=== PATIENT | male | born 1940 | race African-American/Black ===

== ENCOUNTER 2018-02-03 06:34 | Day surgery (SDC) | payer MEDICARE ==
[2018-01-31 09:47] VITALS: BMI 26.6
[2018-02-03] MEDS ORDERED: MIDAZOLAM HCL 2 MG/2 ML SINGLE DOSE VIAL ONE (07:44)
[2018-02-03] MEDS ORDERED: PROPOFOL 20 ML ONE ×2 (07:44)
[2018-02-03] MEDS ORDERED: LIDOCAINE HCL/PF 2% SDV 5ML VIAL ONE (07:44)
[2018-02-03] MEDS ORDERED: DESFLURANE GAS 240 ML BOTTLE IH ONE (08:09)
[2018-02-03] MEDS ORDERED: ACETAMINOPHEN 325 MG TABLET (FP) PO PRN (08:11)
[2018-02-03] MEDS ORDERED: ONDANSETRON 4 MG/2 ML VIAL IVPUSH PRN (08:11)
[2018-02-03] MEDS ORDERED: oxyCODONE HCL 5 MG TABLET PO PRN (08:11)
[2018-02-03] MEDS ORDERED: LACTATED RINGERS SOLUTION 1,000 ML IV SCH (08:15)
[2018-02-03 09:42] VITALS: TEMP 97.9
[2018-02-03] MEDS ORDERED: ACETAMINOPHEN 325 MG TABLET (FP) ONE (11:16)
--- NOTE | 2018-02-03 12:07 | OP ---
Operative Note - Note: Operative Date: 02/03/18 Pre-Operative Diagnosis: bph/urethral stricture Operation: cystoscopy/urethral dilation/laser urethrotomy Findings: high grade bulbourethral stricture Post-Operative Diagnosis: Same as Pre-op Surgeon: Gwyn Young Anesthesia: General Drains & Tubes with Location: 22 eritrean silastic catheter
[2018-02-03 14:03] VITALS: BP 128/69; PULSE 72
--- NOTE | 2018-04-03 16:40 | OP ---
DATE OF OPERATION: 02/03/2018 PREOPERATIVE DIAGNOSIS: Benign prostatic hypertrophy and urethral stricture. POSTOPERATIVE DIAGNOSIS: Benign prostatic hypertrophy with urethral stricture. PROCEDURE: Cystoscopy, urethral dilation, and laser urethrotomy. SURGEON: Belgica Presley MD ANESTHESIA: General. DESCRIPTION OF PROCEDURE: The patient was brought to the operating room and placed in the supine position on the operating table. Preoperative antibiotics and anesthesia are administered. The patient was then placed in the dorsal lithotomy position and prepped and draped in the usual sterile manner. Cystoscopy was attempted and the bulbous urethral stricture is noted. Attempts at dilation were unsuccessful. At this point, it was decided to perform a laser urethrotomy utilizing a Holmium laser. A Holmium laser was utilized under cystoscopic visualization. A 12 oclock incision was made at the area of the bulbous urethra. Care was taken not to return to the area of this empiric mechanism. The urethral sphincter was preserved. The 12 oclock position allowed for passage of the cystoscope into the bladder. The 3+ obstructive prostate with a large median lobe was noted. A 2+ was seen. No evidence of stones or neoplasm was noted within the bladder. At this point, the cystoscope was removed and a 22-Slovak Silastic catheter was placed to straight drainage. No complications were noted. DISPOSITION: The patient went to the recovery room. BELGICA PRESLEY M.D. /[id number]
== END 2018-02-03 13:00 | disposition home or self-care (01) ==
LOC: JASU-SURG 06:34
PROVIDERS: ATTEND Urology
PROC: 0T7D8ZZ Dilation of Urethra, Via Natural or Artificial Opening Endoscopic (ICD-10-PCS; principal; 2018-02-03 08:00)
DX: N40.1 Benign prostatic hyperplasia with lower urinary tract symptoms (principal); N35.8 Other urethral stricture; I10 Essential (primary) hypertension
CPT/HCPCS: 82962; 94760

== ENCOUNTER 2018-02-22 03:46 | Emergency (ER) | payer MEDICARE ==
--- NOTE | 2018-02-22 04:09 | PDOC ---
Attending Attestation - Resident Resident Name: Gege Castellon - ED Attending Attestation I have performed the following: I have examined & evaluated the patient, The case was reviewed & discussed with the resident, I agree w/resident's findings & plan - HPI HPI: 02/22/18 05:03 Pt came with urinary retention. BP elevated secondary to pain. After urine drained with a neil catheter, pt's BP is 127/73. - Medical Decision Making 02/22/18 05:04 Discussed with pt's doctor. Pt will go home with a neil catheter. <Lelo Call - Last Filed: 02/22/18 05:03> - HPI HPI: 02/22/18 05:32 The patient is a 77 year old male, with a significant past medical history of DM and BPH, who presents to the emergency department with, urinary retention. As per patient, he had a laser urethrotomy done on 02/[address] Young. He had a catheter placed and removed 02/18. Yesterday be notes urinary retention. He denies any recent fevers, chills, headache or dizziness. He denies any recent nausea, vomit, diarrhea or constipation. He denies any recent chest pain or shortness of breath. He denies any recent dysuria, frequency, urgency or hematuria. Allergies: Sulfamethoxazole Primary Care Physician: Dr. Barber Bassett - Physicial Exam PE: 02/22/18 05:33 GENERAL: Awake, alert, and fully oriented, in no acute distress HEAD: No signs of trauma EYES: PERRLA, EOMI, sclera anicteric, conjunctiva clear ENT: Auricles normal inspection, hearing grossly normal, nares patent, oropharynx clear without exudates. Moist mucosa NECK: Normal ROM, supple, no lymphadenopathy, JVD, or masses LUNGS: Breath sounds equal, clear to auscultation bilaterally. No wheezes, and no crackles HEART: Regular rate and rhythm, normal S1 and S2, no murmurs, rubs or gallops ABDOMEN: Soft, nontender, normoactive bowel sounds. No guarding, no rebound. No masses +EXTREMITIES: Minimal pitting edema to the bilateral lower extremities. Normal range of motion. No clubbing or cyanosis. No cords, erythema, or tenderness NEUROLOGICAL: Cranial nerves II through XII grossly intact. Normal speech, normal gait SKIN: Warm, Dry, normal turgor, no rashes or lesions noted. <Flora Gay - Last Filed: 02/22/18 05:33> Attestations - Attestations 02/22/18 05:33 Documentation prepared by Flora Gay, acting as medical economics consultant for Lelo Call MD. <Flora Gay - Last Filed: 02/22/18 05:33>
[2018-02-22 04:31] VITALS: BP 198/100; PULSE 86; TEMP 98.8; BMI 26.2
--- NOTE | 2018-02-22 04:32 | PDOC ---
History of Present Illness <Lelo Call - Last Filed: 02/22/18 05:17> - General History Source: Patient - History of Present Illness Initial Comments: 02/22/18 05:18 Pt is a 77yo m with PMH of BPH, DM presenting to ED with complaints of "I can't pee". Pt had a laser urethrotomy on 02/[address] Young. He had a urinary cather placed in since then. He was recently seen in the ED for "blockage" of the cather which was drained. Pt has been on antibiotics since the cather had been in place. Cather was removed this past Saturday. Pt states he has been unable to urinate since yesterday and has been having suprapubic abdominal pains. PMH: see hpi PSH: see hpi Allergies: bactrim meds: see med rec <Gege Castellon - Last Filed: 02/22/18 05:41> - General Chief Complaint: Urinary Problem Stated Complaint: PROBLEM URINATING/POST SURGERY Time Seen by Provider: 02/22/18 04:03 Past History <Lelo Call - Last Filed: 02/22/18 05:17> - Past Medical History Anemia: No Asthma: No Cancer: No Cardiac Disorders: No CVA: No COPD: No CHF: No Dementia: No Diabetes: Yes GI Disorders: No Disorders: No HTN: Yes Hypercholesterolemia: No Liver Disease: No Seizures: No Thyroid Disease: No - Surgical History Orthopedic Surgery: Yes (TIAN SHOULDER SX) - Suicide/Smoking/Psychosocial Hx Smoking History: Former smoker Have you smoked in the past 12 months: No If you are a former smoker, when did you quit?: many years ago Hx Alcohol Use: No Drug/Substance Use Hx: No Substance Use Type: None Hx Substance Use Treatment: No <Gege Castellon - Last Filed: 02/22/18 05:41> - Past Medical History Allergies/Adverse Reactions: Allergies Allergy/AdvReac Type Severity Reaction Status Date / Time sulfamethoxazole Allergy Verified 02/22/18 04:30 [From Bactrim] Home Medications: Ambulatory Orders Amlodipine Besylate 10 mg PO DAILY 01/31/18 Gabapentin 300 mg PO TID 01/31/18 Glipizide [Glipizide ER] 10 mg PO DAILY 01/31/18 Sitagliptin Phos/Metformin HCl [Janumet 50-1,000 mg Tablet] 1 each PO BID Tamsulosin HCl 0.4 mg PO DAILY 01/31/18 levoFLOXacin [Levaquin -] 500 mg PO DAILY #7 tablet 02/03/18 Oxybutynin Chloride [Ditropan Xl] 10 mg PO DAILY #3 tab.er.24 02/08/18 Nitrofurantoin Monohyd/M-Cryst [Macrobid -] 100 mg PO BID #14 capsule 02/12/18 Review of Systems - Review of Systems Constitutional: No: Chills, Fever, Loss of Appetite, Weakness HEENTM: No: Recent change in vision, Double Vision Respiratory: No: Cough, Shortness of Breath Cardiac (ROS): No: Chest Pain, Lightheadedness, Palpitations, Syncope ABD/GI: Yes: Other (suprapubic abdominal pain). No: Abdominal Distended, Blood Streaked Bowels, Constipated, Diarrhea, Nausea, Vomiting : Yes: Other (urinary retention). No: Burning, Dysuria, Incontinence Musculoskeletal: No: Back Pain, Joint Pain, Muscle Pain, Muscle Weakness, Neck Pain Neurological: No: Headache, Numbness, Tingling <Gege Castellon - Last Filed: 02/22/18 05:41> *Physical Exam - Vital Signs Last Vital Signs Temp Pulse Resp BP Pulse Ox 98.8 F 86 22 198/100 99 02/22/18 03:50 02/22/18 03:50 02/22/18 03:50 02/22/18 03:50 02/22/18 03:50 <Lelo Call - Last Filed: 02/22/18 05:17> - Physical Exam General Appearance: Yes: Nourished, Appropriately Dressed. No: Apparent Distress HEENT: positive: EOMI, SHIELA, Pharynx Normal. negative: Pharyngeal Erythema Neck: positive: Trachea midline. negative: Lymphadenopathy (R), Lymphadenopathy (L) Respiratory/Chest: positive: Lungs Clear, Normal Breath Sounds. negative: Crackles, Rales, Rhonchi, Stridor Cardiovascular: positive: Regular Rhythm, Regular Rate, S1, S2. negative: JVD, Murmur Vascular Pulses: Carotid (R): 2+, Carotid (L): 2+, Dorsalis-Pedis (R): 2+, Doralis-Pedis (L): 2+ Gastrointestinal/Abdominal: positive: Normal Bowel Sounds, Soft, Tenderness ( suprapubic tenderness). negative: Distended, Guarding, Rebound Male Genitalia: positive: normal genitalia, hematuria (red urine from catheter. ). negative: testicular tenderness, testicular mass Musculoskeletal: negative: CVA Tenderness Extremity: positive: Normal Capillary Refill Integumentary: positive: Normal Color, Dry Neurologic: positive: printing grey cloth tender II-XII NML intact, Fully Oriented, Alert, Normal Mood/ Affect, Normal Response, Motor Strength 5/5 <Gege Castellon - Last Filed: 02/22/18 05:41> ED Treatment Course - ADDITIONAL ORDERS Additional order review: Laboratory Results 02/22/18 04:38 Urine Color Red Urine Appearance Slcloudy Urine pH 6.0 Ur Specific [place] 1.011 Urine Protein 2+ H Urine Glucose (UA) 2+ H Urine Ketones Negative Urine Blood 3+ H Urine Nitrite Negative Urine Bilirubin Negative Urine Urobilinogen Negative Ur Leukocyte Esterase Trace <Lelo Call - Last Filed: 02/22/18 05:17> Medical Decision Making - Medical Decision Making 02/22/18 05:39 Pt is a 77yo m with PMH of BPH, DM presenting to ED with complaints of "I can't pee". Urinary cather placed. hematuria present. UA collected. Will wait for result. Pt reported feeling better with catheter in place. No more suprapubic pain. UA negative for infection. Called Dr. Young. Dr. Cunha answered. Ok with plan to DC pt with leg bag and have pt follow up in office next week. Pt hemodynamically stable and reported resolution of symptoms. Is ambulatory and has good f/u. Will d/c home with strict return precautions. <Gege Castellon - Last Filed: 02/22/18 05:41> *DC/Admit/Observation/Transfer <Lelo Call - Last Filed: 02/22/18 05:17> <Gege Castellon - Last Filed: 02/22/18 05:41> Diagnosis at time of Disposition: Urinary retention - Discharge Dispostion Disposition: HOME Condition at time of disposition: Fair - Referrals Referrals: Barber Bassett [Primary Care Provider] - Gwyn Young MD [Staff Physician] - - Patient Instructions Printed Discharge Instructions: How to Care for Your Neil Catheter -- Male, DI for Urinary Retention in Men Additional Instructions: You were seen here today because you were unable to urinate. We placed in a neil catheter and you felt relief. There is some blood in the urine but there is no infection. Please make an appointment with Dr. Young this week. Please come back to the ED if: the catheter stops working, pain gets worse, more blood in urine, urine is not clear/looks infected, if you develop fever or if any new concerning symptom develops. Thank you. - Post Discharge Activity
[2018-02-22 04:58] LABS: URINE APPEARANCE SLCLOUDY; URINE BILIRUBIN NEGATIVE (<2.0 mg/dL); URINE COLOR RED; URINE GLUCOSE (UA) 2+ (NEGATIVE); URINE KETONE NEGATIVE (NEGATIVE); URINE LEUK ESTERASE TRACE (NEGATIVE); URINE NITRITE NEGATIVE (NEGATIVE); URINE UROBILINOGEN NEGATIVE mg/dL (0.2-1.0)
[2018-02-22 05:00] LABS: URINE PROTEIN 2+ (NEGATIVE)
[2018-02-22 05:52] LABS: URINE BACTERIA RARE /hpf (NONE SEEN); URINE HYALINE CAST 5 /lpf
== END 2018-02-22 05:40 | disposition home or self-care (01) ==
LOC: JER 03:46
PROC: 0T9B70Z Drainage of Bladder with Drainage Device, Via Natural or Artificial Opening (ICD-10-PCS; principal; 2018-02-22)
DX: N40.1 Benign prostatic hyperplasia with lower urinary tract symptoms (principal); R33.8 Other retention of urine; E11.9 Type 2 diabetes mellitus without complications; Z79.84 Long term (current) use of oral hypoglycemic drugs
CPT/HCPCS: 51702; 81003; 81015; 87086; 99282-25

== ENCOUNTER 2018-03-12 06:23 | Day surgery (SDC) | payer MEDICARE ==
[2018-03-11 15:05] VITALS: BMI 26.2
[~2018-03-12 06:23] MED LIST: ACETAMINOPHEN 325 MG TABLET (FP) PO PRN; CYCLOPENTOLATE HCL 1% OPHTH SOLN 2 ML BOTTLE OP SCH; KETOROLAC TROMETHAMINE 0.5% EYE DROP 1 DROP DROPS OP SCH; OFLOXACIN 0.3% OPHTHALMIC SOLUTION 5 ML BOTTLE OP SCH; PHENYLEPHRINE 2.5% OPHTH SOLN 15 ML BOTTLE OP SCH; TROPICAMIDE 1% OPHTH SOLN 15 ML BOTTLE OP SCH
[2018-03-12] MEDS: TROPICAMIDE 1% OPHTH SOLN 15 ML BOTTLE ONE ×2 (07:00→07:30)
[2018-03-12] MEDS: PHENYLEPHRINE 2.5% OPHTH SOLN 15 ML BOTTLE ONE ×3 (07:00→07:30)
[2018-03-12] MEDS: OFLOXACIN 0.3% OPHTHALMIC SOLUTION 5 ML BOTTLE ONE ×3 (07:00→07:30)
[2018-03-12] MEDS: KETOROLAC TROMETHAMINE 0.5% EYE DROP 1 DROP DROPS ONE ×3 (07:00→07:30)
[2018-03-12] MEDS: CYCLOPENTOLATE HCL 1% OPHTH SOLN 2 ML BOTTLE ONE ×3 (07:00→07:30)
[2018-03-12] MEDS ORDERED: VANCOMYCIN 500 MG VIAL (RESTRICTED TO ID ONLY) ONE (07:26)
[2018-03-12] MEDS ORDERED: LIDOCAINE HCL/PF 1% SDV 5ML VIAL ONE (07:27)
[2018-03-12] MEDS ORDERED: TETRACAINE 0.5% OPHTH SOLN 2 ML BOTTLE ONE (07:27)
[2018-03-12] MEDS ORDERED: BSS (NA/CA/MG/K) BALANCED SALT SOLUTION OPHTH SOLN 15 ML BOTTLE ONE (07:27)
[2018-03-12] MEDS ORDERED: TRYPAN BLUE 0.5 ML DISP.SYRIN ONE (07:29)
[2018-03-12] MEDS ORDERED: POVIDONE-IODINE 5% OPHTHALMIC PREP 30 ML SOLUTION ONE (07:30)
[2018-03-12] MEDS ORDERED: LIDOCAINE HCL 1% PRESERVATIVE FREE - 30ML VIAL IO ONE ×2 (07:59→08:15)
[2018-03-12] MEDS ORDERED: CHONDROITIN SU A/HYALUR SOD 1 KIT IO ONE ×2 (07:59→08:15)
[2018-03-12] MEDS ORDERED: VANCOMYCIN 500 MG VIAL (RESTRICTED TO ID ONLY) IVPB ONE ×3 (08:07→08:38)
[2018-03-12] MEDS ORDERED: MIDAZOLAM HCL 2 MG/2 ML SINGLE DOSE VIAL ONE (08:08)
[2018-03-12] MEDS ORDERED: POVIDONE-IODINE 5% OPHTHALMIC PREP 30 ML SOLUTION OD ONE (08:10)
[2018-03-12] MEDS ORDERED: TRYPAN BLUE 0.5 ML DISP.SYRIN IO ONE (08:15)
[2018-03-12] MEDS ORDERED: PHENYLEPHRINE/KETOROLAC 4 ML VIAL IO ONE ×2 (08:15→08:30)
[2018-03-12] MEDS ORDERED: CHONDROITIN SU A/HYALUR SOD 1 KIT ONE (08:27)
[2018-03-12 08:57] VITALS: TEMP 97.7
--- NOTE | 2018-03-12 09:13 | OP ---
DATE OF SURGERY: 03/12/2018 OPERATION: Phacoemulsification of right cataract, capsular staining with Trypan blue and intraocular lens implantation, lens used [id number], 23.5 Diopter power, Serial No. [id number]. PREOPERATIVE DIAGNOSIS: Cataract right eye. POSTOPERATIVE DIAGNOSIS: Cataract right eye. SURGEON: Kai Martin M.D. ANESTHESIA: Topical MAC. COMPLICATIONS: None. PROCEDURE: The patient was brought to the operating room and correctly identified along with the operative site as well as correct intraocular lens haque. The patient was then prepped and draped in the usual sterile fashion including 5% Betadine solution in the conjunctival sac and an eyelid drape. An eyelid speculum was then placed into the operative eye. The eye was inspected and a poor red reflex was noted. A paracentesis port was created and .5 mL of intracameral preservative-free Lidocaine 1% was given. Beneath an air bubble, the capsule was then stained with Trypan blue. The Trypan blue was then irrigated from the eye with balanced salt solution (BBS). Viscoelastic was injected to inflate the anterior chamber. A temporal clear corneal would was created. A continuous circular capsulorrhexis was performed. The nucleus was then hydro-dissected and hydro-delineated was BSS and removed with phacoemulsification via [id number] approach. The remaining cortical material was irrigated and aspirated from the eye. Viscoelastic was injected in the anterior chamber to inflate the capsular bag. The intraocular lens was then injected into the bag. The Viscoelastic was irrigated and aspirated from the eye. All wounds were tested and found to be watertight. No suture was placed. The intraocular lens was noted to be well centered and covered by the anterior capsular border. Topical Vancomycin was given. The eye was patched and shielded. The patient was discharged from the operating room in stable condition. Enmanuel [id number]
[2018-03-12 09:19] VITALS: BP 121/60; PULSE 71
== END 2018-03-12 09:22 | disposition home or self-care (01) ==
LOC: JASU-SURG 06:23
PROVIDERS: ATTEND Ophthalmology
PROC: 08RJ3JZ Replacement of Right Lens with Synthetic Substitute, Percutaneous Approach (ICD-10-PCS; principal; 2018-03-12 08:00)
DX: H26.9 Unspecified cataract (principal); H57.8 Other specified disorders of eye and adnexa
CPT/HCPCS: 82962; C9447

== ENCOUNTER 2018-03-24 10:24 | Day surgery (SDC) | payer MEDICARE ==
[2018-03-21 13:34] VITALS: BMI 26.2
[2018-03-24] MEDS ORDERED: LIDOCAINE HCL/PF 2% SDV 5ML VIAL ONE (12:18)
[2018-03-24] MEDS ORDERED: PROPOFOL 20 ML ONE (12:19)
[2018-03-24] MEDS ORDERED: MIDAZOLAM HCL 2 MG/2 ML SINGLE DOSE VIAL ONE (12:19)
[2018-03-24] MEDS ORDERED: ONDANSETRON 4 MG/2 ML VIAL IVPUSH PRN (14:18)
[2018-03-24] MEDS ORDERED: oxyCODONE HCL 5 MG TABLET PO PRN (14:18)
[2018-03-24] MEDS ORDERED: LACTATED RINGERS SOLUTION 1,000 ML IV SCH (14:30)
--- NOTE | 2018-03-24 15:53 | OP ---
Operative Note - Note: Operative Date: 03/24/18 Pre-Operative Diagnosis: bph/urinary retention Operation: transurethral resection and vaporization of the prostate with bipolar system Findings: severe prostatic obstruction with 2+ bladder trabeculation Post-Operative Diagnosis: Same as Pre-op Surgeon: Gwyn Young Anesthesia: General Specimens Removed: prostatic chips Estimated Blood Loss (mls): 75 Drains & Tubes with Location: 26 american neil
[2018-03-24] MEDS ORDERED: oxyCODONE HCL 5 MG TABLET PO ONE (16:10)
[2018-03-24] MEDS ORDERED: oxyCODONE HCL 5 MG TABLET ONE (16:11)
[2018-03-24 17:01] VITALS: BP 135/77; PULSE 91; TEMP 97.7
--- NOTE | 2018-03-24 20:42 | OP ---
DATE OF OPERATION: 03/24/2018 PREOPERATIVE DIAGNOSIS: Benign prostatic hypertrophy and urinary retention. POSTOPERATIVE DIAGNOSIS: Benign prostatic hypertrophy and urinary retention. PROCEDURE: Transurethral resection and vaporization of the prostate with bipolar system. ATTENDING: Belgica Presley MD ANESTHESIA: General. DESCRIPTION OF OPERATION: The patient was brought in the operating room, placed in supine position on the operating room table. Anesthesia and preoperative antibiotics were administered without complications. Patient was then placed in the dorsal lithotomy position and prepped and draped in the usual sterile manner. A resectoscope was placed under visualization into the bladder. The bladder was investigated and noted to have no evidence of stones or neoplasm. A 3+ obstructive prostate was noted. Resection of the prostate in order to debulk the prostate was performed initially. The margins of the resection were the bladder neck proximally and the verumontanum distally. The resection was performed in a 360-degree fashion. The resection was taken down to the level of the pseudocapsule of the prostate. Once this was performed, all prostatic chips were evacuated from the bladder utilizing the [employer] evacuator. At this point, the working element, which had been the loop, was changed to a button. Vaporization and cauterization were then ensured utilizing the button element of the bipolar system. Residual tissue was vaporized, and excellent hemostasis was attained within the prostatic fossa. The margins of the vaporization and cauterization were the bladder neck proximally and the verumontanum distally. This was done again in a 360-degree fashion. Excellent hemostasis was attained. The bladder was investigated and noted to have no evidence of residual prostatic tissue. There was no evidence of perforation of the bladder. The abdomen was soft on examination during the procedure. With excellent hemostasis, the resectoscope was removed, and a Rhoades catheter placed, 30 mL were inflated into the balloon of the catheter and placed on light traction. Excellent drainage was noted which was light pink in color. The disposition of the patient was to the recovery room. The catheter had been placed to straight drainage. The patient will be observed in the recovery room and the postop area. If the patient continues to do well, he will be discharged home. BELGICA PRESLEY M.D. [id number]
--- NOTE | 2018-03-27 14:19 | PATH ---
Surgical Pathology Report Patient Name: LEIGHA BERGMAN [facility]. Rec. #: [id number] /Age/Gender: 1940 (Age: 78) / M Account: [id number] Location: [facility] SURGICAL Taken: 03/24/2018 Received: 03/25/2018 Reported: 03/27/2018 Physicians: Gwyn Young Specimen(s) Received PROSTATE CHIPS Clinical History Benign prostatic hyperplasia Elevated PSA Final Diagnosis PROSTATE, TRANSURETHRAL RESECTION OF PROSTATE WITH VAPORIZATION: BENIGN PROSTATIC TISSUE WITH FOCAL ACUTE AND CHRONIC INFLAMMATION, ACINAR ATROPHY, CYSTIC CHANGES, GLANDULAR AND STROMAL HYPERPLASIA. PROSTATIC URETHRA WITH ACUTE AND CHRONIC INFLAMMATION, FOCAL ULCERATION, AND ASSOCIATED GRANULATION TISSUE. Electronically Signed Herlinda Valverde M.D. Gross Description Received in formalin labeled "prostate" is a 53 g, 9 x 9 x 2 cm aggregate of cowart, firm to rubbery portions of tissue, consistent with prostate chips. Donkey Ride Operator portions are submitted in 10 cassettes. [facility]/03/25/2018 [email or web address]/03/25/2018
== END 2018-03-24 17:00 | disposition home or self-care (01) ==
LOC: JASU-SURG 10:24
PROVIDERS: ATTEND Urology
PROC: 0VT08ZZ Resection of Prostate, Via Natural or Artificial Opening Endoscopic (ICD-10-PCS; principal; 2018-03-24 12:00)
DX: N40.1 Benign prostatic hyperplasia with lower urinary tract symptoms (principal); R33.8 Other retention of urine
CPT/HCPCS: 82962; 88305-TC; 94760